=== PATIENT | female | born 1980 | race Caucasian/White ===

== ENCOUNTER 2022-01-03 00:40 | Inpatient (IN) | payer SELFPAY ==
[~2022-01-03] VITALS: Ht 154.9 cm; Wt 50.8 kg
[2022-01-03] MEDS ORDERED: LACTATED RINGERS 500 ML IV ONE (00:55)
[2022-01-03] MEDS ORDERED: OXYTOCIN 20 UNITS in LACTATED RINGERS 1,000 ML IV SCH (00:55)
[2022-01-03 01:18] LABS: BASOPHILS # (AUTO) 0.1 K/uL (0.00-0.22); BASOPHILS % (AUTO) 0.6 % (0.0-2.0); EOSINOPHILS # (AUTO) 0.1 K/uL (0-0.4); EOSINOPHILS % (AUTO) 0.6 % (0.0-4.0); LYMPHOCYTES # (AUTO) 2.4 K/uL (2.5-16.5); LYMPHOCYTES % (AUTO) 24.3 % (20.5-51.1); MEAN CORPUSCULAR HEMOGLOBIN 34 pg (27-31); MEAN CORPUSCULAR HGB CONC 35 g/dL (33-37); MEAN CORPUSCULAR VOLUME 95.8 fL (80-94); MONOCYTES # (AUTO) 0.7 K/uL (0.8-1.0); MONOCYTES % (AUTO) 7.6 % (1.7-9.3); NEUTROPHILS # (AUTO) 6.5 K/uL (1.8-7.7); NEUTROPHILS % (AUTO) 66.9 % (42.2-75.2); PLATELET COUNT (AUTO) 177 K/uL (140-450); RED BLOOD CELL COUNT(AUTO) 3.87 MIL/uL (4.20-5.40); RED CELL DISTRIBUTION WIDTH 15.3 % (11.6-13.7); WHITE BLOOD COUNT (AUTO) 9.7 K/uL (4.8-10.8)
[2022-01-03 01:27] LABS: APPEARANCE,URINE CLEAR (CLEAR); BILIRUBIN,URINE NEGATIVE (NEGATIVE); COLOR,URINE YELLOW (YELLOW); LEUKOCYTE ESTERASE ,URINE TRACE (NEGATIVE); NITRITE, URINE NEGATIVE (NEGATIVE); UGLUCOSE NEGATIVE (NEGATIVE)
[2022-01-03 01:31] LABS: BLOOD, URINE NEGATIVE (NEGATIVE)
[2022-01-03] MEDS: LACTATED RINGERS 1,000 ML IV SCH ×2 (01:32→08:40)
[2022-01-03 01:33] VITALS: BP 114/70
[2022-01-03 01:47] LABS: ALBUMIN 2.1 g/dL (3.4-5.0); ANION GAP 14.3 (8-16); CARBON DIOXIDE 22.8 mmol/L (21-32); CREATININE 0.9 mg/dL (0.6-1.3); POTASSIUM 4.1 mmol/L (3.5-5.1); TOTAL BILIRUBIN 0.3 mg/dL (0.0-1.0)
[2022-01-03] MEDS ORDERED: OXYTOCIN 20 UNITS/LR PREMIX 1,000 ML IV ONE (02:34)
[2022-01-03] MEDS ORDERED: LEVO0.083 PO (02:53)
[2022-01-03] MEDS ORDERED: LIOT5TAB4 PO (04:41)
--- NOTE | 2022-01-03 06:28 | NUR ---
PATIENT HAS BEEN SCREENED AND CATEGORIZED LOW NUTRITION RISK. PATIENT WILL BE SEEN WITHIN 7 DAYS OF ADMISSION. 01/10/[address]
[2022-01-03] MEDS ORDERED: METHYLERGONOVINE 0.2 MG/ML AMP IM SCH (07:45)
[2022-01-03] MEDS ORDERED: LIDOCAINE MPF 1% 10 MG/ML VIAL INJ SCH (10:18)
[2022-01-03] MEDS ORDERED: LIDOCAINE 1% 500 MG/50 ML VIAL ONE (10:26)
[2022-01-03] MEDS ORDERED: METHYLERGONOVINE 0.2 MG/ML AMP IM PRN (13:20)
[2022-01-03] MEDS ORDERED: BENZOCAINE/MENTHOL 20%-0.5% 60 GM CAN TP PRN (13:20)
[2022-01-03] MEDS ORDERED: METHYLERGONOVINE 0.2 MG TAB PO PRN (13:20)
[2022-01-03] MEDS ORDERED: MEASLES, MUMPS, AND RUBELLA 1 VIAL SQVAC ONE (13:20)
[2022-01-03] MEDS ORDERED: MEASLES, MUMPS, AND RUBELLA 1 VIAL SQVAC PRN (13:25)
[2022-01-03] MEDS: ACETAMINOPHEN 325 MG TAB PO PRN (18:19)
[2022-01-04] MEDS ORDERED: LEVOTHYROXINE 0.088 MG TAB PO SCH (06:30)
[2022-01-04 06:44] LABS: HEMATOCRIT 34.7 % (36-48); HEMOGLOBIN 12.1 g/dL (12.0-16.0)
[2022-01-04] MEDS: ACETAMINOPHEN 325 MG TAB PO PRN (09:48)
== END 2022-01-04 14:50 | disposition home or self-care (01) | DRG 807 ==
LOC: MLD 00:40 → MFCC 13:45
PROVIDERS: ADMIT Obstetrics & Gynecology; ATTEND Obstetrics & Gynecology
PROC: 10E0XZZ Delivery of Products of Conception, External Approach (ICD-10-PCS; principal; 2022-01-03)
PROC: 0HQ9XZZ Repair Perineum Skin, External Approach (ICD-10-PCS; 2022-01-03)
PROC: 10907ZC Drainage of Amniotic Fluid, Therapeutic from Products of Conception, Via Natural or Artificial Opening (ICD-10-PCS; 2022-01-03)
DX: O70.0 First degree perineal laceration during delivery (principal); Z37.0 Single live birth; Z3A.38 38 weeks gestation of pregnancy
CPT/HCPCS: 36415; 59409; 80053; 81003; 85018; 85025; 86592; 86886; 86900; 86901; J2001; J2590